=== PATIENT | male | born 1975 | race Caucasian/White ===

== ENCOUNTER 2019-08-05 13:02 | Outpatient (CLI) | payer OTHER ==
--- NOTE | 2019-08-05 14:31 | MRI ---
MRI OF RIGHT 3RD DIGIT: DATE: 08/05/2019. PROVIDED CLINICAL HISTORY: Pain without known injury. FINDINGS: A bone island is seen within the 2nd metacarpal head. Regional marrow signal appears otherwise adriano l. Regional muscular signal appears normal. No regional joint effusion is evident. Alignment appea rs anatomic. Joint spaces appear preserved. The dorsal extensor and volar flexor tendons demonstrate an intact MR appearance. There is no eviden ce for tenosynovitis. The MCP, PIP, and DIP joints appear normal. IMPRESSION: Unremarkable MRI of the right 3rd digit. POS: [facility]
== END 2019-08-05 13:03 | disposition home or self-care (01) ==
LOC: SCSMRI 13:02
PROVIDERS: ATTEND Orthopaedic Surgery
DX: S63.612A Unspecified sprain of right middle finger, initial encounter (principal)